=== PATIENT | female | born 1955 | race Caucasian/White ===

== ENCOUNTER → 2016-12-15 | Outpatient (CLI) | payer MEDICARE ==
[~2016-12-15] MED LIST: COZAAR100 MG PO; HYDROCODON-ACE1 EAC5 PO; METFORMIN PO; NORVASC10 MG PO; VIIBRYD10 MG PO
--- NOTE | ~2016-12-15 | CT3 ---
[facility] A Service of [facility] RADIOLOGY TEXT RESULTS PATIENT: SEPIDEH JIMENEZ LOCATION: [facility] : 57 UNIT #: [id number] AGE: [address]: Dirk Scott MD SEX: F ORDER DR: [id number] [facility]. [place], [place] [address] [id number] O MR#: [id number] Acc #: [id number] NAME: SEPIDEH JIMENEZ : 1955 SEX: F STUDY DATE/TIME: 12/15/2016 9:28 UNIT: [facility] ROOM: STUDY DESCRIPTION: CT Abd and Pelv WWo Cont Attending Physician: Dirk Scott M.D. Referring Physician: Dirk Scott M.D. Ordering Physician: Dirk Scott M.D. Primary Care Physician: Dirk Scott M.D. MEDICAL IMAGING REPORT This report is preliminary unless electronic signature is present EXAM CT of the abdomen and pelvis with and without contrast. INDICATIONS Follow up left renal lesion. TECHNIQUE CT of the abdomen and pelvis was performed before and after the administration of IV contrast using a multiphase protocol. Coronal and sagittal reformatted images were obtained. This CT exam was performed with one or more of the following radiation dose reduction techniques: automatic exposure control, adjustment of mA and/or kV according to patient size, and iterative reconstruction. COMPARISON No comparison studies are available at this time. FINDINGS The lung bases are clear. The liver is unremarkable. Cholecystectomy. The spleen is unremarkable. Noncontrast evaluation of the kidneys demonstrates no evidence for renal stone. There is a simple cyst located within the lower pole of the left kidney measuring about 2.7 cm. There is no evidence for a solid renal mass. There is no hydronephrosis. The adrenal glands and pancreas are unremarkable. Pelvis: Colonic diverticulosis. No free fluid. The remainder of the pelvis is unremarkable. The bone windows show degenerative changes of the lower lumbar spine. IMPRESSION [facility] A Service of [facility] RADIOLOGY TEXT RESULTS PATIENT: SEPIDEH JIMENEZ LOCATION: [facility] : 57 UNIT #: [id number] AGE: [address]: Dirk Scott MD SEX: F ORDER DR: Small 2.7 cm simple cyst located within the lower pole of the left kidney. Dictated by... William Lucas M.D. THIS IS AN ELECTRONICALLY VERIFIED REPORT William Lucas M.D. at 12/16/2016 2:47 PM JAYDEN/jermaine TD: 12/15/2016 12:10 JOB #: [id number] MEDICAL IMAGING REPORT Page 1 of 1 COPY
[2016-12-15 14:25] LABS: POC - CREATININE 0.92 mg/dL (0.44-1.03); POC - GFR >60.0 mL/min (>60)
== END | disposition home or self-care (01) ==
LOC: CCAT 07:28
PROVIDERS: Internal Medicine
DX: N28.9 Disorder of kidney and ureter, unspecified (principal); N28.1 Cyst of kidney, acquired
CPT/HCPCS: 74178; 82565; Q9967